=== PATIENT | male | born 1960 | race Caucasian/White ===

== ENCOUNTER 2017-06-27 01:40 | Inpatient (IN) | payer BC ==
[2017-06-27] VITALS (7 sets, daily range): BP systolic 111–143; BP diastolic 58–102; PULSE 81–121; RESP 16–18; TEMP 97.7–99.3; O2SAT 92–97
[~2017-06-27] VITALS: Ht 182.9 cm; Wt 95.0 kg
[2017-06-27] MEDS ORDERED: ERGO2000 PO (03:20)
[2017-06-27] MEDS ORDERED: ASPI81TA23 PO (03:20)
[2017-06-27] MEDS ORDERED: KETOROLAC TROMETHAMINE 30 MG/ML (IVP) VIAL IV PUSH ONE (03:45)
[2017-06-27] MEDS ORDERED: DIATRIZOATE MEGLUM/DIATRIZOATE SOD 9 ML CUP PO ONE (03:45)
[2017-06-27] MEDS ORDERED: LACTULOSE SYRUP 20 GM/30 ML CUP PO ONE (03:45)
[2017-06-27 03:53] LABS: AUTOMATED NEUTROPHIL # 17.3 TH/MM3 (1.8-7.7); BASOPHIL % 0.2 % (0.0-2.0); HEMATOCRIT 56.6 % (39.0-51.0); HEMOGLOBIN 19.7 GM/DL (13.0-17.0); LYMPH % 6.7 % (9.0-44.0); LYMPHOCYTE # 1.3 TH/MM3 (1.0-4.8); MEAN CELL VOLUME 86.2 FL (80.0-100.0); MEAN CORPUSCULAR HEMOGLOBIN 30.1 PG (27.0-34.0); MEAN CORPUSCULAR HGB CONC 34.9 % (32.0-36.0); MEAN PLATELET VOLUME 9.3 FL (7.0-11.0); MONO % 4.3 % (0.0-8.0); MONOCYTE # 0.8 TH/MM3 (0-0.9); NEUT % 88.8 % (16.0-70.0); PLATELET COUNT 209 TH/MM3 (150-450); RED BLOOD COUNT 6.57 MIL/MM3 (4.50-5.90); RED CELL DISTRIBUTION WIDTH 15.2 % (11.6-17.2); WHITE BLOOD COUNT 19.5 TH/MM3 (4.0-11.0)
--- NOTE | 2017-06-27 03:59 | PD ---
HPI Chief Complaint: Abdominal Pain Time Seen by Provider: 03:19 Travel History International Travel<30 days: No Contact w/Intl Traveler<30days: No Traveled to known affect area: No History of Present Illness HPI Patient is a 56-year-old male flu down for bike week on the right he became severely tender in his lower abdomen cramping unable to move his bowels for 2 days. He is on Cipro and prednisone for ear infections that his doctor treated prior to the flight thinking it would help him with ear pain. Patient now is having severe spasm cramp constant for the last day he went to the bathroom nothing will come out no history of constipation no history of diverticulitis no history of abdomen surgery in the ER is having pain continuing spasm-like over his suprapubic and left lower quadrant no nausea no vomiting he has taken mag citrate without any relief and he has not seen another doctor for the same complaint PFSH Past Medical History Medical History: Denies Significant Hx Tetanus Vaccination: > 5 Years Influenza Vaccination: No Past Surgical History Other Surgery: Yes (RIGHT ARM ) Social History Alcohol Use: Yes (SOCIAL) Tobacco Use: No Substance Use: No Allergies-Medications (Allergen,Severity, Reaction): Coded Allergies: Penicillins (Verified Allergy, Unknown, 06/27/17) povidone-iodine (Verified Allergy, Unknown, 06/27/17) soap (Verified Allergy, Unknown, 06/27/17) Reported Meds & Prescriptions Reported Meds & Active Scripts Active Reported Vitamin D2 (Ergocalciferol) 2,000 Unit Tab 8,000 Units PO DAILY Aspirin EC (Aspirin) 81 Mg Tabdr 81 Mg PO DAILY Review of Systems Except as stated in HPI: all other systems reviewed are Neg Gastrointestinal: Positive: Abdominal Pain, Constipation Physical Exam Narrative GENERAL: Patient is in no distress SKIN: Warm and dry. HEAD: Atraumatic. Normocephalic. EYES: Pupils equal and round. No scleral icterus. No injection or drainage. ENT: No nasal bleeding or discharge. Mucous membranes pink and moist. NECK: Trachea midline. No JVD. CARDIOVASCULAR: Regular rate and rhythm. RESPIRATORY: No accessory muscle use. Clear to auscultation. Breath sounds equal bilaterally. GASTROINTESTINAL: Abdomen positive tenderness over his suprapubic area and left lower quadrant soft,r nondistended. Hepatic and splenic margins not palpable. MUSCULOSKELETAL: Extremities without clubbing, cyanosis, or edema. No obvious deformities. NEUROLOGICAL: Awake and alert. No obvious cranial nerve deficits. Motor grossly within normal limits. Five out of 5 muscle strength in the arms and legs. Normal speech. PSYCHIATRIC: Appropriate mood and affect; insight and judgment normal. Data Data Last Documented VS Vital Signs Date Time Temp Pulse Resp B/P (MAP) Pulse Ox O2 Delivery O2 Flow Rate FiO2 06/27/17 02:16 (97) 06/27/17 01:56 98.9 121 95 Orders Orders Ketorolac Inj (Toradol Inj) (06/27/17 03:45) Diatrizoate Liq ( Gastroview Liq) (06/27/17 03:45) Complete Blood Count With Diff (06/27/17 03:36) Comprehensive Metabolic Panel (06/27/17 03:36) Lipase (06/27/17 03:36) Oral Contrast - Adult (06/27/17 03:37) Lactulose Liq (Lactulose Liq) (06/27/17 03:45) Ct Abd/Pel W/O Iv Contrast (06/27/17 ) Cefepime Inj (Maxipime Inj) (06/27/17 06:45) Morphine Inj (Morphine Inj) (06/27/17 06:45) Ondansetron Inj (Zofran Inj) (06/27/17 06:45) Sodium Chlor 0.9% 1000 Ml Inj (Ns 1000 M (06/27/17 07:00) Labs Laboratory Tests Test 06/27/17 03:35 White Blood Count 19.5 TH/MM3 Red Blood Count 6.57 MIL/MM3 Hemoglobin 19.7 GM/DL Hematocrit 56.6 % Mean Corpuscular Volume 86.2 FL Mean Corpuscular Hemoglobin 30.1 PG Mean Corpuscular Hemoglobin Concent 34.9 % Red Cell Distribution Width 15.2 % Platelet Count 209 TH/MM3 Mean Platelet Volume 9.3 FL Neutrophils (%) (Auto) 88.8 % Lymphocytes (%) (Auto) 6.7 % Monocytes (%) (Auto) 4.3 % Eosinophils (%) (Auto) 0.0 % Basophils (%) (Auto) 0.2 % Neutrophils # (Auto) 17.3 TH/MM3 Lymphocytes # (Auto) 1.3 TH/MM3 Monocytes # (Auto) 0.8 TH/MM3 Eosinophils # (Auto) 0.0 TH/MM3 Basophils # (Auto) 0.0 TH/MM3 CBC Comment DIFF FINAL Differential Comment Blood Urea Nitrogen 18 MG/DL Creatinine 1.12 MG/DL Random Glucose 83 MG/DL Total Protein 8.3 GM/DL Albumin 3.8 GM/DL Calcium Level 9.0 MG/DL Alkaline Phosphatase 71 U/L Aspartate Amino Transf (AST/SGOT) 62 U/L Alanine Aminotransferase (ALT/SGPT) 38 U/L Total Bilirubin 1.7 MG/DL Sodium Level 135 MEQ/L Potassium Level 5.1 MEQ/L Chloride Level 101 MEQ/L Carbon Dioxide Level 28.3 MEQ/L Anion Gap 6 MEQ/L Estimat Glomerular Filtration Rate 68 ML/MIN Lipase 64 U/L [facility] Medical Decision Making Medical Screen Exam Complete: Yes Emergency Medical Condition: Yes Differential Diagnosis pt may have constipation vs pancreatitis vs GB disease vs appendicitis , vs diverticulitis Narrative Course Pt has PO contrast prep for CT abdo pelvis Zofran NS fluid and -- > CT show free air and possible perforated appendicitis , I call Dr. Corrales who comes bedside to evaluate pt for OR and I given Cefepime and flagyl and admit to OR Dr Corrales Pt pain becomes severe I given fentanyl and repeat as needed. awaiting OR Critical Care Narrative 30 minutes critical care management and consulting and antibiotics and fluid prep Diagnosis Primary Impression: Perforated viscus Admitting Information Admitting Physician Requests: Shay Samuel MD Jun 27, 2017 03:59
[2017-06-27 04:19] LABS: ALKALINE PHOSPHATASE 71 U/L (45-117); TOTAL BILIRUBIN ADULT 1.7 MG/DL (0.2-1.0); TOTAL PROTEIN 8.3 GM/DL (6.4-8.2)
[2017-06-27 04:49] LABS: ALBUMIN 3.8 GM/DL (3.4-5.0); ALT (GPT) 38 U/L (12-78); AST (GOT) 62 U/L (15-37); BICARBONATE 28.3 MEQ/L (21.0-32.0); BLOOD UREA NITROGEN 18 MG/DL (7-18); CHLORIDE 101 MEQ/L (98-107); CREATININE 1.12 MG/DL (0.60-1.30); GLOMERULAR FILTRATION RATE 68 ML/MIN (>89); GLUCOSE,RANDOM 83 MG/DL (74-106); SODIUM (NA) 135 MEQ/L (136-145)
--- NOTE | 2017-06-27 06:17 | RADRPT ---
EXAM DATE/TIME: 06/27/2017 05:23 This report includes an Addendum and supersedes previous reports for this exam. [facility] COMPARISON: No previous studies available for comparison. INDICATIONS : Lower abdomen pain with mild constipation. ORAL CONTRAST: Prescribed oral contrast ingested. RADIATION DOSE: 16.52 CTDIvol (mGy) MEDICAL HISTORY : None SURGICAL HISTORY : None. ENCOUNTER: Initial ACUITY: 1 day PAIN SCALE: 7/10 LOCATION: lower quadrant abdomen TECHNIQUE: Volumetric scanning of the abdomen and pelvis was performed. Using automated exposure control and ad justment of the mA and/or kV according to patient size, radiation dose was kept as low as reasonably achievable to obtain optimal diagnostic quality images. DICOM format image data is available electro nically for review and comparison. FINDINGS: Study was done with oral contrast only. Wall thickening and inflammatory changes involve multiple loops of small bowel in the lower mid and l ower right abdomen/pelvis, for example series 2 image 62. This primarily involves portions of the pro ximal and mid ileum. The terminal ileum is not involved. Some of the inflammatory change abuts the ba se of the cecum and I don't clearly see a normal appendix. There is a heterogeneous mass of the right adrenal gland measures approximately 3.3 x 4.0 x 4.6 cm. T he left adrenal gland is normal. Liver is mildly enlarged. No focal hepatic lesion demonstrated. Spleen within normal limits. Multiple benign-appearing peripelvic cysts of both kidneys. There is diverticulosis of the sigmoid colon but no findings of primary diverticulitis. Visualized lung bases are clear. No acute bony abnormality demonstrated. CONCLUSION: 1. Inflammatory changes involve loops of small bowel in the right lower quadrant of a nonspecific ent eritis. It's conceivable that appendicitis has evolved to the point that it eroded/obliterated the ap pendix and with the inflammatory changes now secondarily involving the surrounding small bowel. No ob struction or drainable abscess demonstrated. 2. Sigmoid colon diverticulosis but no diverticulitis demonstrated. 3. There is a large, heterogeneous mass of the right adrenal gland that is not typical of a adenoma o r other benign structure. 4. Mild nonspecific hepatomegaly. 5. Scattered benign-appearing peripelvic cysts of both kidneys. Yahir Long MD on June 27, 2017 at 5:59 Board Certified Radiologist. This report was verified electronically. ADDENDUM: Small amounts of free intraperitoneal air are seen in the upper abdomen. I feel this increases the li kelihood that the right lower quadrant inflammatory changes reflect appendicitis that has perforated and with secondary surrounding enteritis rather than primary enteritis. Dr. Gann aware. Yahir Long MD on June 27, 2017 at 6:29 Board Certified Radiologist. This report was verified electronically.
[2017-06-27] MEDS ORDERED: MORPHINE SULFATE 4 MG/ML INJ IV PUSH ONE (06:45)
[2017-06-27] MEDS ORDERED: ONDANSETRON HCL 4 MG/2 ML VIAL IV PUSH ONE (06:45)
[2017-06-27] MEDS ORDERED: CEFEPIME INJ 2,000 MG in SODIUM CHLORIDE 0.9% INJ 100 ML IV ONE (06:45)
[2017-06-27] MEDS ORDERED: SODIUM CHLOR 0.9% 1000 ML INJ 1,000 ML IV ONE (07:00)
[2017-06-27] MEDS ORDERED: metroNIDAZOLE 500 MG INJ 100 ML IV ONE (07:15)
[2017-06-27 07:31] LABS: PROTHROMBIN TIME - PATIENT 10.4 SEC (9.8-11.6)
--- NOTE | 2017-06-27 08:06 | HHI.HP ---
HPI Service General Surgery Primary Care Physician No Primary Care Physician Admission Diagnosis perforated viscous Chief Complaint: Abdominal pain and bloating History of Present Illness 56-year-old male here for bike week from [place] with complaints of lower abdominal pain and bloating for about 48 hours. He initially felt that this was due to constipation and tried multiple medications such as Tums and magnesium citrate. The pain has continued to worsen and he presented to the emergency department. He denies nausea or vomiting. He has never had a colonoscopy. He does not localize the pain to the right of the left side. He does not frequently use NSAIDs. Prior to this episode he was not having any gastrointestinal symptoms. In the emergency department he was noted to have leukocytosis and a CT scan of the abdomen and pelvis shows small amounts of free air in the upper abdomen and inflammatory changes in the right lower abdomen. It looks like there is some fluid between loops of small bowel. I reviewed the images. He also has a right adrenal mass which requires follow-up. Review of Systems Constitutional: COMPLAINS OF: Chills, DENIES: Fever Eyes: DENIES: Eye inflammation, Eye pain Respiratory: DENIES: Cough, Shortness of breath Cardiovascular: DENIES: Chest pain, Palpitations Gastrointestinal: COMPLAINS OF: Abdominal pain, DENIES: Nausea, Vomiting Genitourinary: COMPLAINS OF: Urinary frequency, DENIES: Dysuria Integumentary: DENIES: Pruritus, Rash Neurologic: DENIES: Paresthesias, Seizures Past Family Social History Past Medical History None Past Surgical History Right great toe surgery Right arm surgery Reported Medications Reported Meds & Active Scripts Active Reported Vitamin D2 (Ergocalciferol) 2,000 Unit Tab 8,000 Units PO DAILY Aspirin EC (Aspirin) 81 Mg Tabdr 81 Mg PO DAILY Allergies: Coded Allergies: Penicillins (Verified Allergy, Unknown, 06/27/17) povidone-iodine (Verified Allergy, Unknown, 06/27/17) soap (Verified Allergy, Unknown, 06/27/17) Active Ordered Medications Current Medications Medications (Trade) Dose Ordered Sig/Manoj Route Start Time Stop Time Status Last Admin Sodium Chloride 1,000 ml @ 999 mls/hr BOLUS ONCE IV 06/27/17 07:00 06/27/17 08:00 06/27/17 07:19 Metronidazole 100 ml @ 100 mls/hr ONCE ONCE IV 06/27/17 07:15 06/27/17 08:14 06/27/17 07:21 Family History Noncontributory Social History He is here for bike week from [place]. Social alcohol use. No tobacco or drug use. Physical Exam Vital Signs Vital Signs Date Time Temp Pulse Resp B/P (MAP) Pulse Ox O2 Delivery O2 Flow Rate FiO2 06/27/17 02:16 (97) 06/27/17 01:56 98.9 121 137/78 (97) 95 Physical Exam GENERAL: Awake and alert. Cooperative. Appears uncomfortable and in some pain. HEAD: Normocephalic. Atraumatic. EYES: Pupils equal round and reactive to light bilaterally. No scleral icterus. ENT: Moist oral mucosa. NECK: Trachea midline. CHEST: Lungs clear to auscultation bilaterally with no wheezing or rhonchi. No respiratory distress. CARDIOVASCULAR: Sinus tachycardia. ABDOMEN: He has diffuse guarding which seems to be involuntary. He is primarily tender in the lower abdomen. No rebound. EXTREMITIES: No cyanosis or edema. SKIN: Warm, dry, nonjaundiced. Laboratory Laboratory Tests Test 06/27/17 03:35 06/27/17 06:58 White Blood Count 19.5 Red Blood Count 6.57 Hemoglobin 19.7 Hematocrit 56.6 Mean Corpuscular Volume 86.2 Mean Corpuscular Hemoglobin 30.1 Mean Corpuscular Hemoglobin Concent 34.9 Red Cell Distribution Width 15.2 Platelet Count 209 Mean Platelet Volume 9.3 Neutrophils (%) (Auto) 88.8 Lymphocytes (%) (Auto) 6.7 Monocytes (%) (Auto) 4.3 Eosinophils (%) (Auto) 0.0 Basophils (%) (Auto) 0.2 Neutrophils # (Auto) 17.3 Lymphocytes # (Auto) 1.3 Monocytes # (Auto) 0.8 Eosinophils # (Auto) 0.0 Basophils # (Auto) 0.0 CBC Comment DIFF FINAL Differential Comment Blood Urea Nitrogen 18 Creatinine 1.12 Random Glucose 83 Total Protein 8.3 Albumin 3.8 Calcium Level 9.0 Alkaline Phosphatase 71 Aspartate Amino Transf (AST/SGOT) 62 Alanine Aminotransferase (ALT/SGPT) 38 Total Bilirubin 1.7 Sodium Level 135 Potassium Level 5.1 Chloride Level 101 Carbon Dioxide Level 28.3 Anion Gap 6 Estimat Glomerular Filtration Rate 68 Lipase 64 Prothrombin Time 10.4 Prothromb Time International Ratio 1.0 Result Diagram: 06/27/17 0335 06/27/17 0335 Imaging Last Impressions Abdomen/Pelvis CT 06/27/17 0000 Signed Impressions: Service Date/Time: Tuesday, June 27, 2017 05:23 - CONCLUSION: 1. Inflammatory changes involve loops of small bowel in the right lower quadrant of a nonspecific enteritis. It's conceivable that appendicitis has evolved to the point that it eroded/obliterated the appendix and with the inflammatory changes now secondarily involving the surrounding small bowel. No obstruction or drainable abscess demonstrated. 2. Sigmoid colon diverticulosis but no diverticulitis demonstrated. 3. There is a large, heterogeneous mass of the right adrenal gland that is not typical of a adenoma or other benign structure. 4. Mild nonspecific hepatomegaly. 5. Scattered benign-appearing peripelvic cysts of both kidneys. Yahir Long MD ADDENDUM: Small amounts of free intraperitoneal air are seen in the upper abdomen. I feel this increases the likelihood that the right lower quadrant inflammatory changes reflect appendicitis that has perforated and with secondary surrounding enteritis rather than primary enteritis. Dr. Gann aware. MD Douglas Cárdenasi VTE Risk Assessment Capmary VTE Risk Assessment: No/Low Risk (score <= 1) Caprini Risk Assessment Model Point Value = 1 Point Value = 2 Point Value = 3 Point Value = 5 Age 41-60 Minor surgery BMI > 25 kg/m2 Swollen legs Varicose veins or History of unexplained or recurrent spontaneous Oral contraceptives or hormone replacement Sepsis (< 1 month) Serious lung disease, including pneumonia (< 1 month) Abnormal pulmonary function Acute myocardial infarction Congestive heart failure (< 1 month) History of inflammatory bowel disease Medical patient at bed rest Age 61-74 Arthroscopic surgery Major open surgery (> 45 min) Laparoscopic surgery (> 45 min) Malignancy Confined to bed (> 72 hours) Immobilizing plaster cast Central venous access Age >= 75 History of VTE Family history of VTE Factor V Leiden Prothrombin [id number] Lupus anticoagulant Anticardiolipin antibodies Elevated serum homocysteine Heparin-induced thrombocytopenia Other congenital or acquired thrombophilia Stroke (< 1 month) Elective arthroplasty Hip, pelvis, or leg fracture Acute spinal cord injury (< 1 month) Prophylaxis Regimen Total Risk Factor Score Risk Level Prophylaxis Regimen 0-1 Low Early ambulation 2 Moderate Order ONE of the following: *Sequential Compression Device (SCD) *Heparin 5000 units SQ BID 3-4 Higher Order ONE of the following medications: *Heparin 5000 units SQ TID *Enoxaparin/Lovenox 40 mg SQ daily (WT < 150 kg, CrCl > 30 mL/min) *Enoxaparin/Lovenox 30 mg SQ daily (WT < 150 kg, CrCl > 10-29 mL/min) *Enoxaparin/Lovenox 30 mg SQ BID (WT < 150 kg, CrCl > 30 mL/min) AND/OR *Sequential Compression Device (SCD) 5 or more Highest Order ONE of the following medications: *Heparin 5000 units SQ TID (Preferred with Epidurals) *Enoxaparin/Lovenox 40 mg SQ daily (WT < 150 kg, CrCl > 30 mL/min) *Enoxaparin/Lovenox 30 mg SQ daily (WT < 150 kg, CrCl > 10-29 mL/min) *Enoxaparin/Lovenox 30 mg SQ BID (WT < 150 kg, CrCl > 30 mL/min) AND *Sequential Compression Device (SCD) Assessment and Plan Assessment and Plan 56-year-old male with perforated viscus unknown location. Looks most likely to be perforated appendicitis or perforated sigmoid colon. I discussed in detail with him multiple possibilities and possible operations including laparoscopic appendectomy, laparoscopic drainage of pericolonic abscess, possible sigmoid colectomy, possible Cunningham's procedure, possible ileostomy. He understands we will know much more when we proceed to the operating room. He has received IV antibiotics. He understands and desires to proceed. 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 I discussed this with he and his and also gave him a copy of the CT report. Antoni,Shay CARDONA Jun 27, 2017 08:06
[2017-06-27] MEDS ORDERED: MORPHINE SULFATE 4 MG/ML INJ IV PUSH PRN (09:00)
[2017-06-27] MEDS ORDERED: BUPIVACAINE/EPINEPHRINE 0.25% 50 ML VIAL ONE (10:16)
[2017-06-27] MEDS ORDERED: PHENYLEPH/NS 1000 MCG/10 ML SYR IV ONE (12:00)
[2017-06-27] MEDS ORDERED: SUCCINYLCHOLINE CHLORIDE 100 MG/5 ML SYRINGE IV PUSH ONE (12:00)
[2017-06-27] MEDS ORDERED: GLYCOPYRROLATE 1 MG/5 ML SYRINGE IV PUSH ONE (12:00)
[2017-06-27] MEDS ORDERED: PROPOFOL 200 MG/20 ML AMP IV ONE (12:00)
[2017-06-27] MEDS ORDERED: NEOSTIGMINE 5 MG/5 ML SYRINGE IV PUSH ONE (12:00)
[2017-06-27] MEDS ORDERED: DEXAMETHASONE SOD PHOS 4 MG/ML VIAL IV ONE (12:00)
[2017-06-27] MEDS ORDERED: LIDOCAINE HCL 1% PF 5 ML SYRINGE OTHER ONE (12:00)
[2017-06-27] MEDS ORDERED: ROCURONIUM INJ 50 MG/5 ML SYRINGE IV PUSH ONE (12:00)
[2017-06-27] MEDS ORDERED: ONDANSETRON HCL 4 MG/2 ML VIAL IV ONE (12:00)
[2017-06-27] MEDS ORDERED: ONDANSETRON HCL 4 MG/2 ML VIAL IV PUSH PRN (13:30)
[2017-06-27] MEDS ORDERED: Post-op Orders (for Pharmacy) XX ONE (13:30)
[2017-06-27] MEDS ORDERED: NALOXONE HCL 0.4 MG/ML AMP IV PUSH PRN ×2 (13:30)
[2017-06-27] MEDS ORDERED: diphenhydrAMINE HCL 50 MG/ML VIAL IV PUSH PRN (13:30)
[2017-06-27] MEDS ORDERED: SODIUM CHLORIDE 0.9% FLUSH 10 ML FLUSH IV FLUSH PRN (13:30)
--- NOTE | 2017-06-27 13:35 | PD.OP ---
cc: Shay Corrales MD Operative Report Date of Surgery: Jun 27, 2017 Preoperative Diagnosis: (1) Perforated viscus Postoperative Diagnosis: (1) Perforation of sigmoid colon due to diverticulitis Procedure: Diagnostic laparoscopy, exploratory laparotomy, drainage of intrabdominal abscess and washout with drain placement Anesthesia: KATYA Surgeon: Shay Corrales Physician Practice Coordinator(s): Milton YADAV Operation and Findings: EBL: 100cc Operative findings: Purulent fluid throughout the abdomen. Normal appendix, small bowel, stomach. Induration of short segment sigmoid colon likely site of perforation. Abscess adjacent to right pelvic sidewall. Procedure in detail: The patient was taken to the operating room and placed in supine position. General endotracheal anesthesia was induced. The abdomen was prepped and draped in usual sterile fashion and a surgical timeout was performed to verify correct patient procedure and site. Local anesthetic was injected in the skin and subcutaneous tissue in the right midabdomen and a 5 mm incision made. Laparoscope was placed in the Optiview trocar which was inserted into the abdomen. The abdomen was insufflated to 15 mmHg with CO2 gas was the patient tolerated well. A 5 mm port was placed in the right lower abdomen and the upper midline, as well as left upper abdomen, under laparoscopic visualization. There was immediately noted to be diffuse peritonitis and purulent fluid throughout the abdomen as well as exudate on much of the intra-abdominal surface. There is very little room intra- abdominally. For 15-30 minutes careful attempt was made to evaluate the abdomen laparoscopically. There is noted to be purulent fluid in the pelvis in the right lower quadrant and in the right upper quadrant. Due to the intra- abdominal pressure and inability to get increased room as well as the diffuse inflammation and because of concerns that aggressive bowel manipulation would cause bowel injury, I proceeded to perform laparotomy. Trochars were removed. A midline laparotomy was performed from the pubis to between the umbilicus and the xiphoid. Dissection was carried out through the fascia with electrocautery. The Bookwalter retractor was placed. Again noted is diffuse purulent fluid throughout the abdomen. The fluid is not feculent and there is no foul smell. Inflammation appears to be concentrated primarily in the lower abdomen. Small bowel was run carefully twice with no evidence of Meckel's diverticulum or any other abnormality. The cecum and appendix is identified. This was mobilized for improved inspection and appears normal. The entire colon is evaluated in a short segment in the distal sigmoid colon is indurated and thickened. There is an associated collection of more concentrated pus covered by epiploica adherent between the segment of sigmoid colon in the pelvic sidewall. This abscess was drained. This segment of sigmoid colon is very carefully inspected and I am unable to identify a peri perforation although I feel this is the likely area of concern. The stomach was visualized and palpated and is normal. NG tube is in proper position. Due to inability to identify any peri perforation and the lack of feculent peritonitis I opted to leave the sigmoid colon in place rather than perform Cunningham's procedure. The abdomen was irrigated with 4 L of warm normal saline until no purulent fluid was identified. A 19 [place] round drain was placed through the left abdominal port site down the left paracolic gutter and into the pelvis around the sigmoid colon. The fascia was then closed with 2 #1 looped PDS sutures. The wound is copiously irrigated. Wide skin staplers were placed fairly far apart and saline soaked Telfa cut into strips is placed between the hilario. The patient tolerated procedure well and was extubated and taken to PACU in stable condition. Shay Corrales MD Jun 27, 2017 13:35
[2017-06-27] MEDS: PANTOPRAZOLE SODIUM 40 MG VIAL IV PUSH SCH (14:00)
[2017-06-27] MEDS: ACETAMINOPHEN 1000 MG/100 ML 100 ML IV SCH ×2 (14:00→21:35)
[2017-06-27] MEDS: metroNIDAZOLE 500 MG INJ 100 ML IV SCH (14:00)
[2017-06-27] MEDS: LACTATED RINGER'S 1000 ML INJ 1,000 ML IV SCH ×2 (14:00→20:37)
[2017-06-27] MEDS ORDERED: PANTOPRAZOLE SODIUM 40 MG VIAL ONE (14:10)
[2017-06-27] MEDS ORDERED: ACETAMINOPHEN 1000 MG/100 ML 100 ML IV ONE (14:10)
[2017-06-27] MEDS ORDERED: DO NOT ADM ANY ANTICOAGULANT DRUGS PRN (14:15)
[2017-06-27] MEDS: HYDROmorphone HCL PCA 6 MG/30 ML IV SCH ×2 (14:46→20:38)
--- NOTE | 2017-06-27 15:01 | EKG ---
Date Performed: 06/27/2017 Time Performed: 07:26:50 PTAGE: 56 years EKG: SINUS TACHYCARDIA NONSPECIFIC T-WAVE ABNORMALITY ABNORMAL RHYTHM ECG NO PREVIOUS TRACING DOCTOR: Xavi Cardenas Interpretating Date/Time 06/27/2017 14:59:25
[2017-06-27] MEDS: LEVOFLOXACIN 750 MG PREMIX INJ 150 ML IV SCH (16:39)
[2017-06-27] MEDS: SODIUM CHLORIDE 0.9% FLUSH 10 ML FLUSH IV FLUSH SCH (21:35)
[2017-06-27] MEDS: PCA - TOTAL MG DILAUDID DELIVERED PER SHIFT OTHER SCH (21:38)
[2017-06-28] VITALS (9 sets, daily range): BP systolic 111–138; BP diastolic 78–99; PULSE 77–94; RESP 16–20; TEMP 97.5–98.7; O2SAT 92–100
[2017-06-28] MEDS: LACTATED RINGER'S 1000 ML INJ 1,000 ML IV SCH ×3 (03:44→17:28)
[2017-06-28] MEDS: metroNIDAZOLE 500 MG INJ 100 ML IV SCH ×4 (03:44→20:47)
[2017-06-28] MEDS: ACETAMINOPHEN 1000 MG/100 ML 100 ML IV SCH ×2 (03:44→10:42)
[2017-06-28 05:55] LABS: BASOPHIL % 0.1 % (0.0-2.0); HEMOGLOBIN 16.3 GM/DL (13.0-17.0); LYMPH % 3.7 % (9.0-44.0); LYMPHOCYTE # 0.4 TH/MM3 (1.0-4.8); MEAN CELL VOLUME 87.7 FL (80.0-100.0); MEAN CORPUSCULAR HEMOGLOBIN 29.8 PG (27.0-34.0); MEAN PLATELET VOLUME 9.3 FL (7.0-11.0); MONO % 4.5 % (0.0-8.0); MONOCYTE # 0.5 TH/MM3 (0-0.9); NEUT % 91.7 % (16.0-70.0); PLATELET COUNT 146 TH/MM3 (150-450); RED BLOOD COUNT 5.47 MIL/MM3 (4.50-5.90); RED CELL DISTRIBUTION WIDTH 15.3 % (11.6-17.2)
[2017-06-28] MEDS: PCA - TOTAL MG DILAUDID DELIVERED PER SHIFT OTHER SCH ×3 (06:00→22:00)
[2017-06-28 06:23] LABS: BICARBONATE 26.2 MEQ/L (21.0-32.0); CALCIUM 7.7 MG/DL (8.5-10.1); CREATININE 0.72 MG/DL (0.60-1.30)
[2017-06-28] MEDS: HYDROmorphone HCL PCA 6 MG/30 ML IV SCH ×4 (07:18→20:49)
--- NOTE | 2017-06-28 10:04 | HHI.PR ---
Subjective Subjective Notes Pain well controlled with CUTTER INSPECTOR. C/o phlegm in throat. Objective Vitals/I&O Vital Signs Date Time Temp Pulse Resp B/P (MAP) Pulse Ox O2 Delivery O2 Flow Rate FiO2 06/28/17 08:26 100 Nasal Cannula 4.00 06/28/17 07:18 16 06/28/17 07:00 97.8 79 123/86 (98) Labs Laboratory Tests Test 06/28/17 04:45 White Blood Count 12.0 Red Blood Count 5.47 Hemoglobin 16.3 Hematocrit 48.0 Mean Corpuscular Volume 87.7 Mean Corpuscular Hemoglobin 29.8 Mean Corpuscular Hemoglobin Concent 34.0 Red Cell Distribution Width 15.3 Platelet Count 146 Mean Platelet Volume 9.3 Neutrophils (%) (Auto) 91.7 Lymphocytes (%) (Auto) 3.7 Monocytes (%) (Auto) 4.5 Eosinophils (%) (Auto) 0.0 Basophils (%) (Auto) 0.1 Neutrophils # (Auto) 11.0 Lymphocytes # (Auto) 0.4 Monocytes # (Auto) 0.5 Eosinophils # (Auto) 0.0 Basophils # (Auto) 0.0 CBC Comment DIFF FINAL Differential Comment Blood Urea Nitrogen 16 Creatinine 0.72 Random Glucose 113 Calcium Level 7.7 Sodium Level 139 Potassium Level 4.0 Chloride Level 105 Carbon Dioxide Level 26.2 Anion Gap 8 Estimat Glomerular Filtration Rate 113 Radiology Last Impressions Abdomen/Pelvis CT 06/27/17 0000 Signed Impressions: Service Date/Time: Tuesday, June 27, 2017 05:23 - CONCLUSION: 1. Inflammatory changes involve loops of small bowel in the right lower quadrant of a nonspecific enteritis. It's conceivable that appendicitis has evolved to the point that it eroded/obliterated the appendix and with the inflammatory changes now secondarily involving the surrounding small bowel. No obstruction or drainable abscess demonstrated. 2. Sigmoid colon diverticulosis but no diverticulitis demonstrated. 3. There is a large, heterogeneous mass of the right adrenal gland that is not typical of a adenoma or other benign structure. 4. Mild nonspecific hepatomegaly. 5. Scattered benign-appearing peripelvic cysts of both kidneys. Yahir Long MD ADDENDUM: Small amounts of free intraperitoneal air are seen in the upper abdomen. I feel this increases the likelihood that the right lower quadrant inflammatory changes reflect appendicitis that has perforated and with secondary surrounding enteritis rather than primary enteritis. Dr. Gann aware. Yahir Long MD Narrative Exam No distress, comfortable in bed RRR Pulm: on NC O2 Abd: bandages in place, distended, NG with dark bilious output low volume, LORE ss output Hill to drainage adequate UOP A/P Assessment and Plan POD 1 s/p ex lap and drain placement for perforated diverticulitis. Stable post op. Cont CUTTER INSPECTOR. Cont NGT and hill. Ok for ice chips. DVT proph: SCDs. Transfer to floor. Shay Corrales MD Jun 28, 2017 10:03
[2017-06-28] MEDS: SODIUM CHLORIDE 0.9% FLUSH 10 ML FLUSH IV FLUSH SCH ×2 (10:56→20:47)
[2017-06-28] MEDS: ENOXAPARIN SODIUM 40 MG/0.4 ML SYRINGE SQ SCH (13:54)
[2017-06-28] MEDS: LEVOFLOXACIN 750 MG PREMIX INJ 150 ML IV SCH (17:04)
[2017-06-28] MEDS: PANTOPRAZOLE SODIUM 40 MG VIAL IV PUSH SCH (17:05)
[2017-06-29] VITALS (8 sets, daily range): BP systolic 131–138; BP diastolic 89–101; PULSE 87–105; RESP 18; TEMP 98.3–98.7; O2SAT 92–95
[2017-06-29] MEDS: LACTATED RINGER'S 1000 ML INJ 1,000 ML IV SCH ×4 (00:09→20:28)
[2017-06-29] MEDS: metroNIDAZOLE 500 MG INJ 100 ML IV SCH ×4 (03:00→20:28)
[2017-06-29] MEDS: PCA - TOTAL MG DILAUDID DELIVERED PER SHIFT OTHER SCH ×3 (05:52→22:00)
[2017-06-29] MEDS: SODIUM CHLORIDE 0.9% FLUSH 10 ML FLUSH IV FLUSH SCH ×2 (08:38→20:30)
[2017-06-29] MEDS: ENOXAPARIN SODIUM 40 MG/0.4 ML SYRINGE SQ SCH ×2 (13:38→15:53)
[2017-06-29] MEDS: LEVOFLOXACIN 750 MG PREMIX INJ 150 ML IV SCH (15:53)
[2017-06-29] MEDS: PANTOPRAZOLE SODIUM 40 MG VIAL IV PUSH SCH (15:54)
--- NOTE | 2017-06-29 16:02 | HHI.PR ---
Subjective Subjective Notes Feels much better; passing small amounts of flatus; pain under control. Objective Vitals/I&O Vital Signs Date Time Temp Pulse Resp B/P (MAP) Pulse Ox O2 Delivery O2 Flow Rate FiO2 06/29/17 13:38 20 06/29/17 12:00 98.6 98 138/92 (107) 94 06/28/17 20:26 Nasal Cannula 4.00 Radiology Last Impressions Abdomen/Pelvis CT 06/27/17 0000 Signed Impressions: Service Date/Time: Tuesday, June 27, 2017 05:23 - CONCLUSION: 1. Inflammatory changes involve loops of small bowel in the right lower quadrant of a nonspecific enteritis. It's conceivable that appendicitis has evolved to the point that it eroded/obliterated the appendix and with the inflammatory changes now secondarily involving the surrounding small bowel. No obstruction or drainable abscess demonstrated. 2. Sigmoid colon diverticulosis but no diverticulitis demonstrated. 3. There is a large, heterogeneous mass of the right adrenal gland that is not typical of a adenoma or other benign structure. 4. Mild nonspecific hepatomegaly. 5. Scattered benign-appearing peripelvic cysts of both kidneys. Yahir Long MD ADDENDUM: Small amounts of free intraperitoneal air are seen in the upper abdomen. I feel this increases the likelihood that the right lower quadrant inflammatory changes reflect appendicitis that has perforated and with secondary surrounding enteritis rather than primary enteritis. Dr. Gann aware. Yahir Long MD Cardiovascular: Regular Lungs: Clear Abdomen: Post-op tenderness A/P Assessment and Plan POD 2 s/p ex lap for diverticulitis; drainage. Stable and improving. Will clamp NG and remove Joe; hopefully start liquids tomorrow. Yogi Jeffery MD Jun 29, 2017 16:02
[2017-06-29] MEDS: HYDROmorphone HCL PCA 6 MG/30 ML IV SCH (17:27)
[2017-06-30] VITALS (8 sets, daily range): BP systolic 120–136; BP diastolic 82–94; PULSE 83–111; RESP 16–20; TEMP 98.1–98.6; O2SAT 91–96
[2017-06-30 05:37] LABS: BICARBONATE 27.2 MEQ/L (21.0-32.0); CALCIUM 8.5 MG/DL (8.5-10.1); CREATININE 0.61 MG/DL (0.60-1.30)
[2017-06-30 05:38] LABS: AUTOMATED NEUTROPHIL # 7.5 TH/MM3 (1.8-7.7); BASOPHIL % 0.3 % (0.0-2.0); EOSINOPHIL # 0.1 TH/MM3 (0-0.4); EOSINOPHIL % 0.9 % (0.0-4.0); HEMATOCRIT 45.2 % (39.0-51.0); HEMOGLOBIN 15.5 GM/DL (13.0-17.0); LYMPH % 7.9 % (9.0-44.0); LYMPHOCYTE # 0.7 TH/MM3 (1.0-4.8); MEAN CELL VOLUME 88.4 FL (80.0-100.0); MEAN CORPUSCULAR HEMOGLOBIN 30.3 PG (27.0-34.0); MEAN CORPUSCULAR HGB CONC 34.3 % (32.0-36.0); MEAN PLATELET VOLUME 9.6 FL (7.0-11.0); MONO % 6.4 % (0.0-8.0); MONOCYTE # 0.6 TH/MM3 (0-0.9); NEUT % 84.5 % (16.0-70.0); PLATELET COUNT 157 TH/MM3 (150-450); RED BLOOD COUNT 5.11 MIL/MM3 (4.50-5.90); RED CELL DISTRIBUTION WIDTH 14.9 % (11.6-17.2); WHITE BLOOD COUNT 8.9 TH/MM3 (4.0-11.0)
[2017-06-30] MEDS: PCA - TOTAL MG DILAUDID DELIVERED PER SHIFT OTHER SCH ×3 (06:00→22:00)
[2017-06-30] MEDS: LACTATED RINGER'S 1000 ML INJ 1,000 ML IV SCH ×2 (06:14→16:00)
[2017-06-30] MEDS: metroNIDAZOLE 500 MG INJ 100 ML IV SCH ×4 (06:14→22:43)
[2017-06-30] MEDS: HYDROmorphone HCL PCA 6 MG/30 ML IV SCH (07:12)
[2017-06-30] MEDS: SODIUM CHLORIDE 0.9% FLUSH 10 ML FLUSH IV FLUSH SCH ×2 (09:20→22:43)
[2017-06-30] MEDS: LEVOFLOXACIN 750 MG PREMIX INJ 150 ML IV SCH (14:08)
--- NOTE | 2017-06-30 15:49 | HHI.PR ---
Subjective Subjective Notes The patient is been out of bed walking around today. These pass flatus but has not had a bowel movement. He states that he would like to walk around more as his pain is becoming more controllable. He is tolerating a full liquid diet to this point. Objective Vitals/I&O Vital Signs Date Time Temp Pulse Resp B/P (MAP) Pulse Ox O2 Delivery O2 Flow Rate FiO2 06/30/17 15:00 98.4 87 20 120/83 (95) 93 06/30/17 09:50 Nasal Cannula 2.00 Labs Laboratory Tests Test 06/30/17 03:37 White Blood Count 8.9 Red Blood Count 5.11 Hemoglobin 15.5 Hematocrit 45.2 Mean Corpuscular Volume 88.4 Mean Corpuscular Hemoglobin 30.3 Mean Corpuscular Hemoglobin Concent 34.3 Red Cell Distribution Width 14.9 Platelet Count 157 Mean Platelet Volume 9.6 Neutrophils (%) (Auto) 84.5 Lymphocytes (%) (Auto) 7.9 Monocytes (%) (Auto) 6.4 Eosinophils (%) (Auto) 0.9 Basophils (%) (Auto) 0.3 Neutrophils # (Auto) 7.5 Lymphocytes # (Auto) 0.7 Monocytes # (Auto) 0.6 Eosinophils # (Auto) 0.1 Basophils # (Auto) 0.0 CBC Comment DIFF FINAL Differential Comment Blood Urea Nitrogen 12 Creatinine 0.61 Random Glucose 81 Calcium Level 8.5 Sodium Level 135 Potassium Level 3.5 Chloride Level 98 Carbon Dioxide Level 27.2 Anion Gap 10 Estimat Glomerular Filtration Rate 137 Radiology Last Impressions Abdomen/Pelvis CT 06/27/17 0000 Signed Impressions: Service Date/Time: Tuesday, June 27, 2017 05:23 - CONCLUSION: 1. Inflammatory changes involve loops of small bowel in the right lower quadrant of a nonspecific enteritis. It's conceivable that appendicitis has evolved to the point that it eroded/obliterated the appendix and with the inflammatory changes now secondarily involving the surrounding small bowel. No obstruction or drainable abscess demonstrated. 2. Sigmoid colon diverticulosis but no diverticulitis demonstrated. 3. There is a large, heterogeneous mass of the right adrenal gland that is not typical of a adenoma or other benign structure. 4. Mild nonspecific hepatomegaly. 5. Scattered benign-appearing peripelvic cysts of both kidneys. Yahir Long MD ADDENDUM: Small amounts of free intraperitoneal air are seen in the upper abdomen. I feel this increases the likelihood that the right lower quadrant inflammatory changes reflect appendicitis that has perforated and with secondary surrounding enteritis rather than primary enteritis. Dr. Gann aware. Yahir Long MD Cardiovascular: Regular Lungs: Clear Abdomen: Non-distended, Post-op tenderness Extremities: No edema A/P Assessment and Plan Impression: Postop day #3 status post [place] laparotomy with drainage of apparent diverticular abscess. He continues to improve and his white count was returned to normal. Is passing flatus and tolerating a full liquid diet. Plan: Continue IV antibiotics and increase activities. Yogi Jeffery MD Jun 30, 2017 15:49
[2017-06-30] MEDS: PANTOPRAZOLE SODIUM 40 MG VIAL IV PUSH SCH (16:00)
[2017-07-01] VITALS (14 sets, daily range): BP systolic 113–132; BP diastolic 82–93; PULSE 78–105; RESP 16–20; TEMP 98.5–99.6; O2SAT 94–98
[2017-07-01] MEDS: LACTATED RINGER'S 1000 ML INJ 1,000 ML IV SCH (00:33)
[2017-07-01] MEDS: HYDROmorphone HCL PCA 6 MG/30 ML IV SCH (01:45)
[2017-07-01] MEDS: metroNIDAZOLE 500 MG INJ 100 ML IV SCH ×4 (06:01→21:30)
[2017-07-01] MEDS: SODIUM CHLORIDE 0.9% FLUSH 10 ML FLUSH IV FLUSH SCH ×2 (09:19→21:30)
--- NOTE | 2017-07-01 13:37 | HHI.PR ---
Subjective Subjective Notes Pain well controlled. He has been ambulating. + flatus and tolerating fulls. Objective Vitals/I&O Vital Signs Date Time Temp Pulse Resp B/P (MAP) Pulse Ox O2 Delivery O2 Flow Rate FiO2 07/01/17 12:00 99.6 105 16 132/93 (106) 07/01/17 07:00 95 06/30/17 09:50 Nasal Cannula 2.00 Radiology Last Impressions Abdomen/Pelvis CT 06/27/17 0000 Signed Impressions: Service Date/Time: Tuesday, June 27, 2017 05:23 - CONCLUSION: 1. Inflammatory changes involve loops of small bowel in the right lower quadrant of a nonspecific enteritis. It's conceivable that appendicitis has evolved to the point that it eroded/obliterated the appendix and with the inflammatory changes now secondarily involving the surrounding small bowel. No obstruction or drainable abscess demonstrated. 2. Sigmoid colon diverticulosis but no diverticulitis demonstrated. 3. There is a large, heterogeneous mass of the right adrenal gland that is not typical of a adenoma or other benign structure. 4. Mild nonspecific hepatomegaly. 5. Scattered benign-appearing peripelvic cysts of both kidneys. Yahir Long MD ADDENDUM: Small amounts of free intraperitoneal air are seen in the upper abdomen. I feel this increases the likelihood that the right lower quadrant inflammatory changes reflect appendicitis that has perforated and with secondary surrounding enteritis rather than primary enteritis. Dr. Gann aware. Yahir Long MD Narrative Exam NAD Abd: soft, incision with packing strips removed, no purulence of erythema LORE ss slightly cloudy A/P Assessment and Plan S/p ex lap and drain placement for perforated diverticulitis. Stable post op. D/c [employer]. Percocet for pain. Soft diet. Laxative x 1 Continue IV antibiotics. DVT proph: SCDs. Likely dc in 1-2 days. Shay Corrales MD Jul 01, 2017 13:37
[2017-07-01] MEDS ORDERED: oxyCODONE/ACETAMINOPHEN 5 MG/325 MG TAB PO PRN (13:45)
[2017-07-01] MEDS ORDERED: MAGNESIUM HYDROXIDE SUSP 30 ML CUP PO ONE (13:45)
[2017-07-01] MEDS: ENOXAPARIN SODIUM 40 MG/0.4 ML SYRINGE SQ SCH (14:46)
[2017-07-01] MEDS: oxyCODONE/ACETAMINOPHEN 5 MG/325 MG TAB PO PRN ×2 (14:48→21:31)
[2017-07-01] MEDS: LEVOFLOXACIN 750 MG PREMIX INJ 150 ML IV SCH (14:53)
[2017-07-02] VITALS (13 sets, daily range): BP systolic 113–127; BP diastolic 79–83; PULSE 80–104; RESP 18; TEMP 98.5–98.7; O2SAT 95
[2017-07-02] MEDS: metroNIDAZOLE 500 MG INJ 100 ML IV SCH ×2 (02:21→08:41)
[2017-07-02] MEDS: oxyCODONE/ACETAMINOPHEN 5 MG/325 MG TAB PO PRN ×3 (02:22→13:32)
[2017-07-02] MEDS: SODIUM CHLORIDE 0.9% FLUSH 10 ML FLUSH IV FLUSH SCH (08:42)
[2017-07-02] MEDS ORDERED: PANTOPRAZOLE SOD 40 MG DELAYED RELEASE TAB PO SCH (09:00)
[2017-07-02] MEDS ORDERED: LEVO750T3 PO (12:22)
[2017-07-02] MEDS ORDERED: METR1TAB76 PO (12:22)
[2017-07-02] MEDS ORDERED: OXYC1TAB63 PO (12:22)
[2017-07-02] MEDS: ENOXAPARIN SODIUM 40 MG/0.4 ML SYRINGE SQ SCH (13:00)
--- NOTE | 2017-07-02 14:12 | HHI.DS ---
Discharge Summary Admission Date Jun 27, 2017 at 06:54 Discharge Date: Jul 02, 2017 Admitting Diagnosis perforated viscous (1) Perforation of sigmoid colon due to diverticulitis ICD Codes: K57.20 - Diverticulitis of large intestine with perforation and abscess without bleeding Brief History 56-year-old male here for bike week from [place] with complaints of lower abdominal pain and bloating for about 48 hours. He initially felt that this was due to constipation and tried multiple medications such as Tums and magnesium citrate. The pain has continued to worsen and he presented to the emergency department. He denies nausea or vomiting. He has never had a colonoscopy. He does not localize the pain to the right of the left side. He does not frequently use NSAIDs. Prior to this episode he was not having any gastrointestinal symptoms. In the emergency department he was noted to have leukocytosis and a CT scan of the abdomen and pelvis shows small amounts of free air in the upper abdomen and inflammatory changes in the right lower abdomen. It looks like there is some fluid between loops of small bowel. I reviewed the images. He also has a right adrenal mass which requires follow-up. CBC/BMP: 06/30/17 0337 06/30/17 0337 Significant Findings Laboratory Tests Test 06/30/17 03:37 Neutrophils (%) (Auto) 84.5 % (16.0-70.0) Lymphocytes (%) (Auto) 7.9 % (9.0-44.0) Lymphocytes # (Auto) 0.7 TH/MM3 (1.0-4.8) Sodium Level 135 MEQ/L (136-145) PE at Discharge NAD Abd: soft, incision with some openings and small wounds, no purulence of erythema LORE ss Hospital Course Post op he required LUMBER SORTER for a few days then switched to percocet. NG removed after a couple of days and he tolerated clears fulls and then soft diet. + multiple bowel movts. Still some mild LLQ cramping. Pt Condition on Discharge: Good Discharge Disposition: Discharge Home Discharge Instructions DIET: Follow Instructions for: Low Fiber Diet Activities you can perform: See Additionl Instruction Other Activity Instructions: No driving. Ok to shower. Need to ambulate multiple times daily. Follow up Referrals: Surgical - 07/08/17 with AntoniShay MD New Medications: Levofloxacin (Levofloxacin) 750 Mg Tablet 750 MG PO DAILY for Infection, #7 TAB 0 Refills Metronidazole (Metronidazole) 500 Mg Tab 500 MG PO TID for Infection, #21 TAB 0 Refills Oxycodone HCl/Acetaminophen (Oxycodone-Acetaminophen 5-325) 5 Mg-325 Mg Tablet 1-2 TAB PO Q4H PRN for PAIN, #45 TAB Continued Medications: Aspirin DR (Aspirin EC) 81 Mg Tabdr 81 MG PO DAILY, TAB 0 Refills Ergocalciferol (Vitamin D2) 2,000 Unit Tab 8000 UNITS PO DAILY for Nutritional Supplement, TAB 0 Refills Shay Corrales MD Jul 02, 2017 14:12
== END 2017-07-02 15:10 | disposition home or self-care (01) | DRG 357 ==
LOC: NEPC 01:40 → NEDA 06:54 → HCVI 15:00 → HCIS 07-01 12:35
PROVIDERS: ADMIT Surgery; ATTEND Surgery
PROC: 0WJG4ZZ Inspection of Peritoneal Cavity, Percutaneous Endoscopic Approach (ICD-10-PCS; 2017-06-27)
PROC: 0W9G00Z Drainage of Peritoneal Cavity with Drainage Device, Open Approach (ICD-10-PCS; principal; 2017-06-27 10:28)
DX: K57.20 Diverticulitis of large intestine with perforation and abscess without bleeding (principal); E27.9 Disorder of adrenal gland, unspecified; Z53.31 Laparoscopic surgical procedure converted to open procedure
CPT/HCPCS: 74176; 80048; 80053; 83690; 85025; 85610; 86850; 86900; 86901; 93005; 94150; 96374; 96375; C9113; J0131; J0330; J0692; J1100; J1170; J1650; J1885; J1956; J2270; J2370; J2405; J2710; J3010; J7030; J7120; Q9963